=== PATIENT | female | born 1990 | race Caucasian/White ===

== ENCOUNTER → 2025-01-31 11:07 | Outpatient (BNVA) | payer OTHER, SELFPAY | PROVIDERS: Visit Provider Registered Nurse | DX: S40.012A Contusion of left shoulder, initial encounter (principal); S00.33XA Contusion of nose, initial encounter; W22.8XXA Striking against or struck by other objects, initial encounter | CPT/HCPCS: 73010; 99204 ==

== ENCOUNTER → 2025-02-02 09:17 | Outpatient (BNVA) | payer OTHER, SELFPAY | PROVIDERS: Visit Provider Physician Assistant | DX: S40.012A Contusion of left shoulder, initial encounter (principal); S00.33XA Contusion of nose, initial encounter; W22.8XXA Striking against or struck by other objects, initial encounter; Z02.79 Encounter for issue of other medical certificate | CPT/HCPCS: 99213 ==